=== PATIENT | female | born 1945 | race Caucasian/White ===

== ENCOUNTER 2019-08-12 08:47 | Outpatient (CLI) | payer MEDICARE ==
--- NOTE | 2019-08-12 09:56 | CT ---
LOW DOSE CT SCAN OF THE CHEST WITHOUT IV CONTRAST OR LUNG CANCER SCREENING: HISTORY: Tobacco user. FINDINGS: There is a 12 mm peripheral solid nodule in the right upper lobe. No other nodules are seen. No pleural or pericardial effusions are noted. There are vascular calcifications without evidence of aneurysmal dilatation of the thoracic aorta. There are degenerative changes of the spine. IMPRESSION: Lung RADS category 4: positive/suspicious for malignancy. Further evaluation with PET scan is recommended. CODE T POS: TPC
== END 2019-08-12 08:48 | disposition home or self-care (01) ==
LOC: CT 08:47
PROVIDERS: ATTEND Internal Medicine
DX: Z12.2 Encounter for screening for malignant neoplasm of respiratory organs (principal); Z87.891 Personal history of nicotine dependence
CPT/HCPCS: G0297

== ENCOUNTER 2019-08-31 07:49 | Outpatient (CLI) | payer MEDICARE ==
--- NOTE | 2019-08-31 10:49 | PET ---
EXAM: PET/CT HISTORY: Solitary pulmonary nodule TECHNIQUE: PET scanning with CT attenuation correction was performed from the base of the brain to the proximal thighs following the intravenous administration of 11.7 millicuries [id number]. COMPARISON: Lung cancer screening CT dated August 12, 2019 FINDINGS: Biodistribution:The biodistribution for the exam appears acceptable. Head and neck: There is appropriate background activity within the brain. No hypermetabolic lymphaden opathy or masses identified. Thorax: No hypermetabolic pulmonary lesion, pleural effusion or lymphadenopathy is present. The suspi cious 1.0 x 1.0 solid pulmonary nodule within the anterior segment of the right upper lobe demonstrates no appreciable hypermetabolic uptake. The peak activity is 0.64. No additional pulmonary nodule is demonstrated. Abdomen and pelvis: There is expected background activity within the GI and systems. No hypermetab olic mass, lymphadenopathy or ascites is present. Osseous structures and skin: No hypermetabolic skin or osseous lesion is identified. IMPRESSION: Normal PET CT evaluation. 1. The 1 cm solid pulmonary nodule within the anterior segment of the right upper lobe demonstrates n o appreciable hypermetabolic uptake. The pulmonary nodule is just beyond the PET resolution threshold of being 1 cm in size; however, no appreciable activity is seen within this nodule. I favor this nodule reflecting a benign granulomatous lesion. As a conservative measure, a follow-up noncontrast CT is recommended in one year for continued surveillance of this pulmonary nodule. With i ts size, a a full 2 years worth of image document stability is recommended. This can be performed as a lung cancer screening CT protocol given the patient's history of smoking.
== END 2019-08-31 07:50 | disposition home or self-care (01) ==
LOC: PET 07:49
PROVIDERS: ATTEND Internal Medicine
DX: R91.1 Solitary pulmonary nodule (principal)
CPT/HCPCS: 78815; A9552

== ENCOUNTER 2020-09-15 14:50 | Outpatient (CLI) | payer MEDICARE ==
--- NOTE | 2020-09-15 15:36 | CT ---
CT Pulmonary Lung Scan History: Personal history of nicotine dependence Comparison: CT pulmonary lung scan August 12, 2019 Findings: No significant interval growth within the anterior segment right upper lobe pulmonary nodul e which continues to measure 12 mm using the same plane of reference. No new suspicious pulmonary nodule. No pneumothorax. No effusion. No potentially significant incidental findings. Mild emphysema. Sternum and manubrium are intact. Thoracic spine is intact. No acute displaced rib fr acture. Impression: Lung RADS Category 2: Benign findings. No significant interval growth of the right upper lobe pulmonary nodule. No new suspicious pulmonary nodule.
--- NOTE | 2020-09-15 16:06 | MMO ---
Bilateral MAMMO Bilat Screen [facility]. CLINICAL HISTORY: Patient is 75 years old and is seen for screening. The patient has the following family history of breast cancer: sister, malignant (generic). The patient has no personal history of cancer. VIEWS: The views performed were: bilateral craniocaudal with tomosynthesis and bilateral mediolateral oblique with tomosynthesis. FILMS COMPARED: The present examination has been compared to prior imaging studies performed at [facility] on 08/02/2019, and at [facility] on 07/30/2017 and 07/30/2018. This study has been interpreted with the assistance of computer-aided detection. MAMMOGRAM FINDINGS: There are scattered fibroglandular densities. There are stable benign appearing calcifications seen in both breasts. There are also vascular calcifications. There are no suspicious masses, suspicious calcifications, or new areas of architectural distortion. IMPRESSION: THERE IS NO MAMMOGRAPHIC EVIDENCE OF MALIGNANCY. A ROUTINE FOLLOW-UP MAMMOGRAM IN 1 YEAR IS RECOMMENDED. THE RESULTS OF THIS EXAM WERE SENT TO THE PATIENT. ACR BI-RADS Category 2 - Benign finding MAMMOGRAPHY NOTE: 1. A negative mammogram report should not delay a biopsy if a dominant of clinically suspicious mass is present. 2. Approximately 10% to 15% of breast cancers are not detected by mammography. 3. Adenosis and dense breasts may obscure an underlying neoplasm. Reported by: AILEEN KEITH MD Electonically Signed: [id number]
== END 2020-09-15 14:51 | disposition home or self-care (01) ==
LOC: BICCT 14:50
PROVIDERS: ATTEND Internal Medicine
DX: Z12.2 Encounter for screening for malignant neoplasm of respiratory organs (principal); R91.1 Solitary pulmonary nodule; Z87.891 Personal history of nicotine dependence; Z12.31 Encounter for screening mammogram for malignant neoplasm of breast
CPT/HCPCS: 77063; 77067; G0297; 71271

== ENCOUNTER 2021-09-17 07:55 | Outpatient (CLI) | payer MEDICARE | END 2021-09-17 07:56 | disposition home or self-care (01) | LOC: BICMAMMO 07:55 | PROVIDERS: ATTEND Internal Medicine | DX: Z12.31 Encounter for screening mammogram for malignant neoplasm of breast (principal); Z13.820 Encounter for screening for osteoporosis; Z78.0 Asymptomatic menopausal state; Z80.3 Family history of malignant neoplasm of breast | CPT/HCPCS: 77063; 77067; 77080 ==

== ENCOUNTER 2023-04-10 08:38 | Outpatient (CLI) | payer MEDICARE | END 2023-04-10 08:39 | disposition home or self-care (01) | LOC: BICMAMMO 08:38 | PROVIDERS: ATTEND Internal Medicine | DX: Z12.31 Encounter for screening mammogram for malignant neoplasm of breast (principal); Z80.3 Family history of malignant neoplasm of breast | CPT/HCPCS: 77063; 77067 ==

== ENCOUNTER 2024-04-13 07:40 | Outpatient (CLI) | payer MEDICARE | END 2024-04-13 07:41 | disposition home or self-care (01) | LOC: BICMAMMO 07:40 | PROVIDERS: ATTEND Internal Medicine | DX: Z12.31 Encounter for screening mammogram for malignant neoplasm of breast (principal); Z80.3 Family history of malignant neoplasm of breast | CPT/HCPCS: 77063; 77067 ==